=== PATIENT | female | born 1985 | race Caucasian/White ===

== ENCOUNTER → 2021-09-07 11:56 | Outpatient (CLI) | payer OTHER, SELFPAY ==
[2021-09-07 13:42] LABS: COVID19 -Nasal RAPID Negative (Negative)
== END ==
PROVIDERS: Family Provider Obstetrics & Gynecology; PCP Obstetrics & Gynecology; Visit Provider Nurse Practitioner Family
DX: Z20.822 Contact with and (suspected) exposure to COVID-19 (principal)
CPT/HCPCS: 87635

== ENCOUNTER 2021-09-09 06:16 | Day surgery (SDC) | payer OTHER, SELFPAY ==
[2021-09-07 08:07] VITALS: BMI 24.7
[2021-09-09] VITALS (9 sets, daily range): BP systolic 101–120; BP diastolic 58–77; PULSE 69–84; RESP 8–20; TEMP 36.2–36.8; O2SAT 92–100; BMI 24.7
--- NOTE | 2021-09-09 | DI.RAD.S_ITS ---
PROCEDURE: XR ANKLE RT 2V INDICATIONS: RIGHT ANKLE FIXATION TECHNIQUE: 2 views of the ankle were acquired. COMPARISON: [facility] Outside Film, CT, CT LOWER EXTREMITY RIGHT WITHOUT CONTRAST, 02/21/2021, 10:55. [facility] Outside Film, CR, XR TIBIA FIBULA RIGHT, 02/10/2021, 12:55. FINDINGS: Intraoperative fluoroscopic images of the right ankle demonstrate interval arthrodesis of the tibiotalar joint with anterior plate and screw fixation across the distal tibia and dorsal talus. Anterograde partially threaded screw transfixes the tibiotalar joint. No evidence for acute hardware complication. IMPRESSION: Intraoperative fluoroscopic support for arthrodesis of the right tibiotalar joint as detailed above. No gross hardware complications identified. Dictated by: Avery Miner M.D. on 09/09/2021 at 11:26 Approved by: Avery Miner M.D. on 09/09/2021 at 11:32
[2021-09-09] MEDS: LACTATED RINGERS 1,000 ML 42 ML IV ×2 (07:18→10:38)
--- NOTE | 2021-09-09 07:32 | PM.PREOP ---
Pre-operative Note COVID-19 COVID-19 status: Negative Interval Note History & Physical reviewed/Exam performed by Physician: Yes Changes to H&P: No
--- NOTE | 2021-09-09 08:09 | SUR.PREOP ---
Block start time [0740] . Monitoring initiated and maintained throughout procedure. Oxygen and medications given per anesthesiologist instructions. Patient remained stable throughout procedure, no adverse reactions noted. Block end time [0805].
[2021-09-09] MEDS: CEFAZOLIN 1 GM VIAL 2 GM IV (08:26)
--- NOTE | 2021-09-09 08:41 | SUR.OPER ---
Supine on padded OR bed, head on pillow, arms secured on padded arm boards at <90 degrees abduction, legs uncrossed, safety belt at waist, tape over blanket over lower left leg, right leg draped free with gel bump under left buttock.
[2021-09-09] MEDS: BUPIVACAINE 0.25% (PF) 30 ML, EPINEPHrine 0.15 MG INJ (08:54)
--- NOTE | 2021-09-09 11:50 | PM.OP.1 ---
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 Open right ankle arthrodesis CPT code 81553 2. Lengthening flexor hallucis longus tendon, Z lengthening through tarsal tunnel approach separate incision-CPT code 36726- 59 3. Lengthening flexor digitorum longus tendon, Z lengthening CPT code 06094 4. 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 She has failed previous treatments with Achilles tendon lengthening and ankle debridement continues to have pain not relieved by her braces. She does have progressive arthritic change expectantly in the anterior half of her tibial talar joint. Limited relief from injections. She has been counseled on options. She has been indicated for an open right ankle fusion with the use of iliac crest and allograft bone. Additionally to address her check rein deformities separate lengthening of the flexor hallucis longus and FDL tendons as indicated through a separate medial incision was planned. The risks and benefits of the procedure have been discussed with the patient even opportunity to ask questions. The risks of surgery include but are not limited to infection, malunion, nonunion, persistence of pain, damage to nerves and blood vessels, posttraumatic arthritis, DVT, PE, cardiopulmonary complications and . The patient expressed a thorough understanding of the risks and benefits of surgery and has elected to proceed. Consent was signed in the office. We discussed that postoperatively she would be nonweightbearing 8-10 weeks she will use aspirin for DVT prophylaxis. She does not have any history of hypercoagulability or clots. She does not smoke. Surgeon: Cynthia Jain [employer] Supervisor: Steffany Torre Anesthesia Type: General, Peripheral nerve block and Local Operative Notes Closure Type: primary Specimen(s): none sent Prosthetic devices, grafts, tissues, transplants, or devices: paragon 28 silverback anterior ankle arthrodesis plate contoured, standard 4.2 locking screws in the talus and 4.5 locking screws in the tibia. 7.0 monster screw partially threaded 55 mm, headed Applied: implant(s) Estimated Blood Loss (mL): 20 Tourniquet time (min): 101 Procedure in detail: Patient was seen in the preoperative area the site of surgery was marked informed consent confirmed. A regional block was placed by the anesthesia team for postoperative pain control. The patient was brought back to the operating room by the anesthesia team physicians supine position on the table. General anesthetic was administered. All bony prominences well padded. Well-padded thigh tourniquet was placed. An ipsilateral thigh bump was placed. An SCD was on the contralateral lower extremity. The right lower extremity was then prepped and draped in the standard sterile fashion. Formal time-out was performed confirming the patient's side and site of surgery administration of appropriate preoperative antibiotics. All were in agreement. The iliac crest was sterilely draped out with a thyroid sheet. Right ankle fusion: Anterior incision was drawn out over the ankle. The Esmarch was then used for exsanguination and the tourniquet raised on the thigh to 250 mmHg. This stayed up for 101 minutes and was let down for closing of the ankle. It was separately inflated for 31 minutes with a separate medial approach for the tendon lengthenings. Anterior approach approximately 12 cm long in the midline of the ankle starting approximately 1 cm lateral to the tibial crest and bisecting the ankle ending at the talonavicular joint was taken down through the skin. Care was taken to identify and protect the superficial peroneal nerve. The extensor retinaculum was then divided. The EHL was identified the child tendon sheath was then opened this was retracted laterally with the neurovascular bundle. The tibialis anterior was retracted medially. The tibiotalar joint was exposed and dissection exposure was taken distally to the level of the talonavicular joint. The ankle distractor was placed and the joint prep set was used to remove remaining cartilage from the joint. There was noted to be a significant wear of the anterior talar dome and tibial plafond. Spurs were removed with the rongeur. Once the cartilage was removed a bur was used to prepare the joint surfaces followed by the joint prep drill and then the fish scaling technique to obtain excellent bleeding bone on both fusion surfaces. The iliac crest aspirate and 5 cc of demineralized cortical fiber allograft was mixed together as well as the iliac dowel and pressed onto the fusion surfaces the joint was then aligned and then pinned in position for standard alignment in neutral dorsiflexion. Position was checked on AP and lateral fluoroscopy. At this point the straight and contour anterior plate from the paragon 28 set were trialed on the anterior surface of the talus and tibia. This patient did have a very short talar neck and some of the distal tibial prominence was then removed to allow the plate to be pushed more posterior once this was completed the standard contoured plate fit best this was provisionally pinned in place with the olive wires. Next a 4.2 nonlocking screw was placed in the talar body holes of the plate approximating to bone and a 4.5 nonlocking screw was placed the oblong hole of the tibial aspect of the plate and not tightened all the way. Next a locking screw, 4.2 was placed in the remaining open talar body hole. Next the drill guide for the 7 0 screw was utilized with the posterior guide hole the K-wire was placed and checked on fluoroscopy. Incision was made in the length was measured after countersinking at this was selected as a 55 mm 7.0 partially-threaded cannulated screw, headed. This was then over drilled and placed before final tightening the olive wires and transfixing K-wire room removed. The 7.0 monster screw was tightened followed by final tightening of the nonlocking screw in the oblong hole of the tibial plate. Then attention was turned back to the talus locking 4.2 screws were placed in the talar neck holes and the nonlocking screw in the talar body was exchanged for a locking screw. Then attention was turned proximally to fill the remaining 3 locking holes with 4.5 screws. Final fluoroscopic x-rays AP and lateral planes demonstrated appropriate placement of hardware and alignment of the joint and compression. The wound was irrigated. Tourniquet was released. Hemostasis was achieved. The extensor retinaculum was closed with 2-0 Vicryl suture. 4-0 Monocryl was used subcutaneously and 3-0 nylon in the skin. Iliac crest bone graft: Attention was turned to the iliac crest this was palpable through the skin the anterior iliac crest was then palpated with my fingers. Knife was used for stab incision and the [id number] bone marrow aspirate trocar was then placed down to bone. This was malleted in. Trocar was removed and approximately 10 cc of iliac crest aspirate was aspirated in small 2 cc aliquots turning and repositioning the trocar with each aliquot to maximize cell capture. Additionally dowel graft was obtained. This was then taken to the back table and mixed with the allograft. The incision was closed with a single nylon stitch. Flexor tendon lengthening x2 : Once the ankle fusion was completed fixing the ankle in neutral dorsiflexion revealed the check rein deformity affecting both the hallux and the lesser toes but more severely the hallux. Decision was made for flexor tendon lengthening and this was selected through a medial tarsal tunnel type approach for left adhesions and exposure to both tendons. A separate incision was then marked posterior to the medial malleolus along the tarsal tunnel course. And this was done after the ipsilateral hip bump was removed of the leg could be externally rotated and frog-leg to facilitate exposure. Incision was taken down through the skin subcutaneous tissues. Hemostasis was achieved. The flexor retinaculum was then encountered and divided. This was significantly thickened. Once the flexor retinaculum was divided the neurovascular bundle was identified and carefully retracted posteriorly. At the distal aspect of the incision the flexor hallucis longus was identified just distal to the sustentacular liyah and this was confirmed by ranging the great toe. Next sutures were placed at the FHL and the tendon was then Z-lengthened and repaired with 2-0 FiberWire suture in a neutral position for an effective lengthening. This provided excellent correction of the great toe but there was still felt to be some clawing of the lesser toes. Therefore dissection was taken just anteriorly to the FHL to identify the FDL tendon which again was confirmed with lesser toe range of motion and this was Z-lengthened in the same fashion and then repaired with 2-0 FiberWire in a neutral position. Once this was completed the wound was irrigated the tourniquet was released hemostasis was achieved and the wound was closed with 2-0 Vicryl 4 0 Monocryl and 3-0 nylon suture. Local anesthetic with 0.25% Marcaine and epinephrine was injected into each wound. A sterile dressing was Xeroform gauze and Webril and a bulky Denis cotton and posterior splint in neutral dorsiflexion was placed. The drapes removed. The patient was woken from anesthesia and taken to recovery room in good condition. There no immediate complications from this procedure. All counts were correct. Complications: none Post-operative Condition: stable Disposition: PACU Plan for aftercare: Patient will least strict elevation above the heart level as much as possible for the 1st 2 weeks after surgery for incision healing. She will have Toradol, oxycodone, gabapentin Zofran for medications. Encouraged to take [id number] stool stool softener Colace to prevent constipation. She will start aspirin 325 mg daily on postoperative day 1. No other anti-inflammatories while on the Toradol. Once Toradol prescription finishes in 5 days may take regular anti-inflammatories
[2021-09-09] MEDS: HYDROMORPHONE 2 MG INJ IV ×3 (11:54→12:09)
--- NOTE | 2021-09-09 11:56 | SUR.PHASEI ---
Received to PACU after general anesthesia. Requiring jaw thrust and O2 as noted for 1st few minutes in PACU. Report received from Dr Cross and BARI Foster.
[2021-09-09] MEDS: fentaNYL 100 MCG/2 ML INJ IV (12:25)
[2021-09-09] MEDS: hydrOXYzine pamoate 25 MG CAPSULE PO (12:27)
[2021-09-09] MEDS: OXYCODONE IR 5 MG TABLET PO ×2 (12:27→13:21)
--- NOTE | 2021-09-09 12:35 | SUR.PHASEI ---
Pt c/o pain 8-07/15. Pt able to carry on conversation, no observable signs of pain. Started on IS. Pt able to get up to 1000 ml.
[2021-09-09] MEDS: ACETAMINOPHEN 325 MG TABLET 650 MG PO (13:21)
== END 2021-09-09 14:02 | disposition home or self-care (01) ==
PROVIDERS: Referring Provider Orthopaedic Surgery Foot and Ankle Surgery; Visit Provider Orthopaedic Surgery Foot and Ankle Surgery
PROC: (CPT 27870; principal; 2021-09-09 07:45)
PROC: (CPT 27691; 2021-09-09 07:45)
DX: M19.071 Primary osteoarthritis, right ankle and foot (principal); Q66.89 Other specified congenital deformities of feet; M24.571 Contracture, right ankle; M67.01 Short Achilles tendon (acquired), right ankle
CPT/HCPCS: 27870; 27685 ×2; 20900; 64450; 73600; 76000; 81025; J0171; J0690; J1100; J1170; J2250; J2405; J2704; J3010